=== PATIENT | female | born 1990 | race Caucasian/White ===

== ENCOUNTER 2017-12-28 16:54 | Inpatient (IN) | payer OTHER ==
[~2017-12-28] VITALS: Ht 152.4 cm; Wt 70.8 kg
[2017-12-28] MEDS ORDERED: ALDOMET250 MG PO (21:00)
[2017-12-28] MEDS ORDERED: PRENATAL TABLE1 EAC1 PO (21:01)
[2018-01-02] MEDS ORDERED: ACETAMINOPHEN500 M1 PO (09:10)
[2018-01-02] MEDS ORDERED: ALDOMET250 MG PO (09:10)
== END 2018-01-02 14:22 | disposition home or self-care (01) | DRG 774 ==
LOC: LDR 16:54 → OB/GYN 16:54 → LDR 17:59 → OB/GYN 12-31 08:47
PROC: 4A1HXCZ Monitoring of Products of Conception, Cardiac Rate, External Approach (ICD-10-PCS; 2017-12-28)
PROC: BY4FZZZ Ultrasonography of Third Trimester, Single Fetus (ICD-10-PCS; 2017-12-29)
PROC: 10E0XZZ Delivery of Products of Conception, External Approach (ICD-10-PCS; principal; 2017-12-31)
PROC: 3E033VJ Introduction of Other Hormone into Peripheral Vein, Percutaneous Approach (ICD-10-PCS; 2017-12-31)
DX: O36.5930 Maternal care for other known or suspected poor fetal growth, third trimester, not applicable or unspecified (principal); O10.013 Pre-existing essential hypertension complicating pregnancy, third trimester; O41.03X0 Oligohydramnios, third trimester, not applicable or unspecified; Z37.0 Single live birth; Z3A.37 37 weeks gestation of pregnancy; Z22.330 Carrier of Group B streptococcus